=== PATIENT | male | born 2000 | race Caucasian/White ===

== ENCOUNTER 2023-05-16 12:13 | Emergency (ER) | payer OTHER, SELFPAY ==
[2023-05-16 12:18] VITALS: BP 129/63; PULSE 84; RESP 20; TEMP 36.4; O2SAT 97; BMI 19.8
--- NOTE | 2023-05-16 12:56 | ED.LOWEXIN ---
HPI - Extremity Injury (Lower) General Time Seen by Provider: 12:56 Date Seen: 05/16/23 Chief Complaint: Extremity Pain/Injury, Lower Stated Complaint: Hurt heel Time Seen by Provider: 05/16/23 12:55 Source: patient and RN notes reviewed Mode of arrival: ambulatory Limitations: no limitations History of Present Illness HPI Narrative: Patient is a 23-year-old male coming in with right heel pain. He used his heel to try to kick a piece of metal to move it on Saturday. He injured the heel, developed a lot of pain and swelling. It did hurt to walk. He originally was not able to wear his boot but does have an on now. He has iced the area, he has used some sparing Tylenol and ibuprofen. Related Data Home Medications Medication Instructions Recorded Confirmed No Known Home Medications 05/16/23 05/16/23 Allergies Allergy/AdvReac Type Severity Reaction Status Date / Time No Known Drug Allergies Allergy Verified 05/16/23 12:24 PFSH PFSH Social History Smoking Status: Light tobacco smoker Do you use any of these nicotine containing products: Vaping Products How often do you have a drink containing alcohol: monthly or less How often do you have six or more drinks on one occasion: Never AUDIT-C Alcohol total score: 1 Non-prescribed substance use: denies use Exam Const: Vital Signs, click to edit/add: Vital Signs - 24 hr 05/16/23 12:18 Temperature 97.5 F L Pulse Rate [Right Pulse Oximeter] 84 Respiratory Rate 20 Blood Pressure [Ri ght Upper Arm] 129/63 Pulse Oximetry 97 Oxygen Delivery Me thod Room Air Patient is seen in exam room 5, he did have his boot on which was removed. There is obvious bruising over the posterior aspect of his heel. Achilles tendon is intact on examination. Tender over the area of bruising of the posterior heel but no loss of skin continuity. Not tender over the ankle, not into the midfoot or really over the plantar aspect of the heel itself. The bruising of the heel is below the insertion of the Achilles tendon, doesn't really extend onto the plantar surface. Documenting provider has reviewed patient's vital signs: yes Course Course ED Course: Patient will have xray of his calcaneus done to rule out fracture. Definitely has contusion of heel at minimum on examination. Do believe that he should have imaging done to assess underlying architecture of bone. Reevaluation(s) Time of Reevaluation #1: 13:46 Reevaluation #1: Patient advised of his negative x-ray imaging as read by Radiology. Vital Signs Vital signs: Initial Vital Signs Temperature 97.5 F L 05/16/23 12:18 Temperature Source Temporal Artery Scan 05/16/23 12:18 Pulse Rate 84 05/16/23 12:18 Pulse Rhythm Regular 05/16/23 12:18 Respiratory Rate 20 05/16/23 12:18 Blood Pressure 129/63 05/16/23 12:18 Blood Pressure Mean 85 05/16/23 12:18 Blood Pressure Position Sitting 05/16/23 12:18 Pulse Oximetry 97 05/16/23 12:18 Oxygen Delivery Method Room Air 05/16/23 12:18 Vital Signs Temperature 97.5 F L 05/16/23 12:18 Pulse Rate 84 05/16/23 12:18 Respiratory Rate 20 05/16/23 12:18 Blood Pressure 129/63 05/16/23 12:18 Pulse Oximetry 97 05/16/23 12:18 Oxygen Delivery Method Room Air 05/16/23 12:18 Temperature 97.5 F L 05/16/23 12:18 Pulse Rate 84 05/16/23 12:18 Respiratory Rate 20 05/16/23 12:18 Blood Pressure 129/63 05/16/23 12:18 Pulse Oximetry 97 05/16/23 12:18 Oxygen Delivery Method Room Air 05/16/23 12:18 MDM - Extremity Injury (Lower) Imaging Data XR right calcaneus: Attestation: I have reviewed the pertinent imaging results. My impression: I see no acute fracture on my preliminary review. Radiologist's impression: Patient: KIM LLAMAS Facility:?[facility] Patient ID:?[id number] Site Patient ID:?[id number]. Site :?[id number] Study:?XRay Extremity Right CALCANEUS 2V-05/16/2023 1:13:59 PM Ordering Physician:Tosha Anton Final Report: Indication: Injury. Pain. Technique: A total of two views of the right calcaneus were acquired. Comparison: None Findings: Bones: Alignment is normal. No fractures or bone lesions. Joint spaces: Unremarkable. Soft tissues: Unremarkable. Impression: Normal plain film examination of the right calcaneus Dictated by Alfa Martinez MD @ 05/16/2023 1:44:32 PM (Electronic Signature) Discharge Plan Discharge Clinical Impression: Contusion of right heel Patient Disposition: Home, Self-Care Condition: Stable Instructions: Foot Contusion (ED) Additional Instructions: Activity as tolerated is fine. Can continue to elevate and ice when you are resting, will continue to help with pain and bruising. Can use Tylenol and ibuprofen following bottle directions for discomfort. Expect that this may take 1-2 weeks to feel better. Activity Level: Activity as Tolerated Prescriptions: No Action No Known Home Medications Follow Up/Referrals: Karen Hoover MD [Staff Physician] - Stand Alone Forms: [email or web address] Info Instructions
--- NOTE | 2023-05-16 13:02 | CRLHL7_ITS ---
For Patients: As a result of the Century Cures Act, medical imaging exams and procedure reports are released immediately into your electronic medical record. You may view this report before your referring provider. If you have questions, please contact your health care provider. Indication: Injury. Pain. Technique: A total of two views of the right calcaneus were acquired. Comparison: None Findings: Bones: Alignment is normal. No fractures or bone lesions. Joint spaces: Unremarkable. Soft tissues: Unremarkable. Impression: Normal plain film examination of the right calcaneus Dictated by Alfa Martinez MD @ 05/16/2023 1:44:32 PM (Electronically Signed)
== END 2023-05-16 13:55 | disposition home or self-care (01) ==
PROVIDERS: Emergency Provider Family Medicine
DX: S90.31XA Contusion of right foot, initial encounter (principal); W22.8XXA Striking against or struck by other objects, initial encounter
CPT/HCPCS: 73650; 99282; 99283